=== PATIENT | female | born 1985 ===

== ENCOUNTER 2018-01-16 13:15 | Inpatient (IN) | payer OTHER ==
[~2018-01-16] VITALS: Ht 160 cm; Wt 58.1 kg
[2018-01-16] MEDS ORDERED: FOLIC ACID1 MG PO (16:53)
[2018-01-16] MEDS ORDERED: ZANTAC150 M3 PO (16:53)
== END 2018-01-23 10:22 | DRG 743 ==
LOC: EDSTATUS 13:15 → ADM 13:15 → O/R 01-21 06:22 → OB/GYN 01-21 06:22 → SURH 01-21 10:00 → OB/GYN 01-21 11:03 → SURH 01-21 13:15 → OB/GYN 01-23 10:22
PROVIDERS: Obstetrics & Gynecology
PROC: 0UB90ZZ Excision of Uterus, Open Approach (ICD-10-PCS; principal; 2018-01-21 10:00)
DX: D25.1 Intramural leiomyoma of uterus (principal)